=== PATIENT | male | born 1975 | race Caucasian/White ===

== ENCOUNTER 2017-10-21 14:26 | Emergency (ER) | payer MEDICAID | END 2017-10-21 15:20 | disposition left against medical advice (07) | LOC: ER 14:27 | DX: M25.579 Pain in unspecified ankle and joints of unspecified foot (principal); Z53.21 Procedure and treatment not carried out due to patient leaving prior to being seen by health care provider ==

== ENCOUNTER 2018-09-19 22:08 | Emergency (ER) | payer MEDICAID, OTHER ==
[~2018-09-19] VITALS: Ht 190.5 cm; Wt 97.0 kg
[2018-09-19 22:11] VITALS: BP 122/77
[2018-09-19] MEDS ORDERED: DOXY100C2 PO (22:56)
== END 2018-09-19 23:07 | disposition home or self-care (01) ==
LOC: ER 22:08
DX: L03.114 Cellulitis of left upper limb (principal); R23.4 Changes in skin texture; Z79.2 Long term (current) use of antibiotics
CPT/HCPCS: 99283; 99284